=== PATIENT | female | born 1980 | race Two or more races ===

== ENCOUNTER → 2024-12-14 | Outpatient (CLI) | payer MEDICAID, SELFPAY ==
--- NOTE | 2024-12-14 | XR_ITS ---
Examination: Diagnostic digital mammography, unilateral, right Computer aided detection 3-D breast Tomosynthesis, unilateral Date and time of exam: December 14, 2024 1443 hours INDICATIONS: Mammogram June 06, 2024 18 mm focal asymmetry inner lower right breast Technique: Nonmagnified MLO, CC views of the right breast have been obtained, reconstructed from 3-D Tomosynthesis images. R2 computer aided detection program utilized for evaluation of suspicious masses and/or abnormal calcifications. 3-D Tomosynthesis images obtained. Findings: The breast is heterogeneously dense, which may obscure small masses Focal asymmetry remains inner right breast on the CC view Impression: BI-RADS category 3: Probably benign findings Continued 6 month bilateral mammography follow-up is needed
--- NOTE | 2024-12-14 15:00 | XR_ITS ---
Examination: Breast ultrasound, unilateral, right complete Date and time of exam: December 14, 2024 1528 hours INDICATIONS: Focal asymmetry right breast on mammogram October 09, 2023 and right breast pain 6 months Technique: Real-time lozano scale ultrasonographic imaging performed right breast including all 4 quadrants as well as nipple retroareolar and axillary region. Findings: 8:00 nodule circumscribed 6 x 7 mm 9:00 cyst 9 x 10 mm 9:00 nodule circumscribed 5 x 4 mm IMPRESSION: BI-RADS Category 3: Probably benign findings One additional 6 month right breast sonogram follow-up is needed to document stability of solid nodules described above
== END | disposition home or self-care (01) ==
PROVIDERS: PCP Nurse Practitioner Family; Referring Provider Nurse Practitioner Family; Visit Provider Nurse Practitioner Family
DX: N63.13 Unspecified lump in the right breast, lower outer quadrant (principal); N63.15 Unspecified lump in the right breast, overlapping quadrants; R92.331 Mammographic heterogeneous density, right breast
CPT/HCPCS: 76641; 77061; 77065; G0279